=== PATIENT | male | born 1985 | race Caucasian/White ===

== ENCOUNTER 2022-06-01 14:39 | Emergency (ER) | payer OTHER ==
[~2022-06-01] VITALS: Ht 170.2 cm; Wt 97.5 kg
[2022-06-01] MEDS ORDERED: Bactrim Ds Tab1 EACH PO (14:54)
== END 2022-06-01 14:56 | disposition home or self-care (01) ==
LOC: ER 14:39
DX: L02.818 Cutaneous abscess of other sites (principal); F17.210 Nicotine dependence, cigarettes, uncomplicated
CPT/HCPCS: 99282

== ENCOUNTER 2022-07-22 18:24 | Emergency (ER) | payer OTHER ==
[~2022-07-22] VITALS: Ht 170.2 cm; Wt 88.5 kg
[~2022-07-22 18:24] MED LIST: Bactrim Ds Tab1 EACH PO
[2022-07-22 18:32] VITALS: BP 113/75
== END 2022-07-22 20:44 | disposition home or self-care (01) ==
LOC: ER 18:24
DX: G56.03 Carpal tunnel syndrome, bilateral upper limbs (principal); F17.200 Nicotine dependence, unspecified, uncomplicated
CPT/HCPCS: 99283; L3917